=== PATIENT | female | born 1985 | race Caucasian/White ===

== ENCOUNTER 2018-05-09 20:31 | Emergency (ER) | payer MEDICAID, SELFPAY ==
[2018-05-09 20:31] VITALS: BP 110/67; PULSE 89; RESP 22; TEMP 36.8; O2SAT 99; BMI 27.6
--- NOTE | 2018-05-09 20:34 | RAD_ITS ---
STUDY: X-RAY - RIGHT SHOULDER REASON FOR EXAM: Female, 32 years old. Pain TECHNIQUE: 2 view(s) of the shoulder. COMPARISON: None. FINDINGS: Normal glenohumeral articulation. Normal acromioclavicular joint. Normal acromion. Normal humeral head and visualized proximal humerus. The soft tissue structures are unremarkable. Normal visualized pulmonary apex. RAD/Shoulder min 2 Views IMPRESSION: Normal x-ray examination of the shoulder. Electronically Signed: Kenrick Olmedo MD at 21:29 EDT , Service support ,
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
[2018-05-09] MEDS: HYDROcodone Bitartrate/Apap 5/325 Tablet PO (22:47)
[2018-05-09 22:50] VITALS: BP 126/87; PULSE 53; RESP 18; O2SAT 100
== END 2018-05-09 22:55 | disposition home or self-care (01) ==
PROVIDERS: Emergency Provider Emergency Medicine
DX: S40.011A Contusion of right shoulder, initial encounter (principal); R11.0 Nausea; R20.2 Paresthesia of skin; R29.898 Other symptoms and signs involving the musculoskeletal system; R51 Headache; R42 Dizziness and giddiness; Y04.8XXA Assault by other bodily force, initial encounter; Y93.9 Activity, unspecified; Y92.9 Unspecified place or not applicable; Z72.0 Tobacco use
CPT/HCPCS: 73030; 99283